=== PATIENT | female | born 1990 | race Caucasian/White ===

== ENCOUNTER 2018-12-15 02:18 | Emergency (ER) | payer MEDICAID ==
[~2018-12-15] VITALS: Ht 157.5 cm; Wt 90.7 kg
[2018-12-15 02:20] VITALS: BP_SYST 142
--- NOTE | 2018-12-15 02:27 | NUR ---
Patient to ER bed 4 to gown for evaluation. Side rails up. Report given to Linda DACOSTA.
--- NOTE | 2018-12-15 02:35 | NUR ---
Patient AOx4, ambulatory, presents to ER with complaint of MIJARES, dizziness, and throbbing neck pain 4/10 x1 week. No report of injury. Patient states she is 12 weeks . Patient states she has difficulty sleeping and is only able to sleep in 2 hour increments. No other symptoms or complaints.
--- NOTE | 2018-12-15 02:40 | NUR ---
ER MD Bates at bedside for medical evaluation.
[2018-12-15] MEDS ORDERED: ACETAMINOPHEN 500 MG TABLET PO ONE (04:45)
--- NOTE | 2018-12-15 05:30 | NUR ---
No adverse reactions noted after medication administration. Will continue to monitor.
[2018-12-15 06:00] VITALS: BP_SYST 134
--- NOTE | 2018-12-15 06:00 | NUR ---
Patient given written and verbal discharge instructions and verbalizes understanding. ER MD discussed with patient the results and treatment provided. Patient in stable condition. ID arm band removed. No Rx given. Patient educated on pain management and to follow up with PMD. Pain Scale 0/10. Opportunity for questions provided and answered.
== END 2018-12-15 06:00 | disposition home or self-care (01) ==
LOC: SED 02:18
DX: O26.891 Other specified pregnancy related conditions, first trimester (principal); G43.909 Migraine, unspecified, not intractable, without status migrainosus; M54.2 Cervicalgia; Z3A.12 12 weeks gestation of pregnancy
CPT/HCPCS: 76801; 76817; 99284

== ENCOUNTER 2018-12-16 13:35 | Emergency (ER) | payer MEDICAID ==
[~2018-12-16] VITALS: Ht 157.5 cm; Wt 90.7 kg
[2018-12-16 13:35] VITALS: BP_SYST 144
[2018-12-16] MEDS ORDERED: NACL 0.9% 1,000 ML IV ONE (13:40)
[2018-12-16 15:41] LABS: BASOPHILS # (AUTO) 0.1 K/uL (0.0-0.2); BASOPHILS % (AUTO) 0.9 % (0.0-2.0); EOSINOPHILS # (AUTO) 0.3 K/uL (0.0-0.4); EOSINOPHILS % (AUTO) 3.3 % (0.0-4.0); HEMATOCRIT 36.5 % (36-48); HEMOGLOBIN 11.8 g/dL (12.0-16.0); LYMPHOCYTES # (AUTO) 1.8 K/uL (1.0-5.5); LYMPHOCYTES % (AUTO) 23.6 % (20.5-51.5); MEAN CORPUSCULAR HEMOGLOBIN 25 pg (27-31); MEAN CORPUSCULAR HGB CONC 32 % (32-36); MEAN CORPUSCULAR VOLUME 78 fL (79.0-98.0); MONOCYTES # (AUTO) 0.6 K/uL (0.0-1.0); MONOCYTES % (AUTO) 7.4 % (1.7-9.3); NEUTROPHILS # (AUTO) 5.1 K/uL (1.8-7.7); NEUTROPHILS % (AUTO) 64.8 % (40.0-70.0); PLATELET COUNT (AUTO) 285 K/uL (130-430); RED BLOOD CELL COUNT(AUTO) 4.65 MIL/uL (4.2-6.2); RED CELL DISTRIBUTION WIDTH 17.6 % (9.0-15.0); WHITE BLOOD COUNT (AUTO) 7.8 K/uL (4.8-10.8)
[2018-12-16 16:16] LABS: CALCIUM 8.9 mg/dL (8.4-11.0); CREATININE 0.43 mg/dL (0.55-1.30); POTASSIUM 4.5 mmol/L (3.5-5.1)
[2018-12-16 16:19] LABS: ALBUMIN 3.3 g/dL (3.4-4.8); TOTAL BILIRUBIN 0.3 mg/dL (0.0-1.0)
[2018-12-16 18:08] VITALS: BP_SYST 108
== END 2018-12-16 18:08 | disposition home or self-care (01) ==
LOC: SED 13:35
DX: O46.91 Antepartum hemorrhage, unspecified, first trimester (principal); R03.0 Elevated blood-pressure reading, without diagnosis of hypertension; Z3A.01 Less than 8 weeks gestation of pregnancy
CPT/HCPCS: 36415; 80053; 84702; 85025; 86901; 99283; J7030

== ENCOUNTER 2018-12-21 18:18 | Emergency (ER) | payer MEDICAID ==
[~2018-12-21] VITALS: Ht 157.5 cm; Wt 90.7 kg
[2018-12-21 18:18] VITALS: BP_SYST 140
--- NOTE | 2018-12-21 18:18 | NUR ---
BROUGHT BACK TO BED #7 AND TRIAGED. REPORT GIVEN TO ASHA
--- NOTE | 2018-12-21 19:00 | NUR ---
Pt came to the ED for 1 day history of vaginal bleeding. Pt was seen on 12/16/2018 for similar complaints. Previous visit was 10,593 HCG. Reports that her work-up was negative adn she was advised to followup with her OBGYN. Reports pt had a migraine but reports that she took Tylenol with some help. Denies n/v/d or fever. No other complaints/injuries noted. Will cont. to monitor.
[2018-12-21 19:06] LABS: BASOPHILS # (AUTO) 0.1 K/uL (0.0-0.2); BASOPHILS % (AUTO) 0.9 % (0.0-2.0); EOSINOPHILS # (AUTO) 0.3 K/uL (0.0-0.4); EOSINOPHILS % (AUTO) 3.7 % (0.0-4.0); HEMATOCRIT 38.2 % (36-48); HEMOGLOBIN 12.5 g/dL (12.0-16.0); LYMPHOCYTES # (AUTO) 2.1 K/uL (1.0-5.5); LYMPHOCYTES % (AUTO) 25.8 % (20.5-51.5); MEAN CORPUSCULAR HEMOGLOBIN 26 pg (27-31); MEAN CORPUSCULAR HGB CONC 33 % (32-36); MEAN CORPUSCULAR VOLUME 79 fL (79.0-98.0); MONOCYTES # (AUTO) 0.8 K/uL (0.0-1.0); NEUTROPHILS # (AUTO) 4.7 K/uL (1.8-7.7); NEUTROPHILS % (AUTO) 59.6 % (40.0-70.0); PLATELET COUNT (AUTO) 293 K/uL (130-430); RED BLOOD CELL COUNT(AUTO) 4.85 MIL/uL (4.2-6.2); RED CELL DISTRIBUTION WIDTH 18.2 % (9.0-15.0)
--- NOTE | 2018-12-21 19:18 | NUR ---
Pt went to ultrasound. Tolerated well. Will cont. to monitor.
--- NOTE | 2018-12-21 19:30 | NUR ---
ER at bedside examining patient.
[2018-12-21 19:31] LABS: CALCIUM 8.4 mg/dL (8.4-11.0); CREATININE 0.52 mg/dL (0.55-1.30); POTASSIUM 4.2 mmol/L (3.5-5.1)
[2018-12-21 20:01] LABS: ALBUMIN 3.5 g/dL (3.4-4.8); TOTAL BILIRUBIN 0.3 mg/dL (0.0-1.0)
--- NOTE | 2018-12-21 20:15 | NUR ---
Pt returned from ultrasound. Tolerated well. Will cont. to monitor.
[2018-12-21 20:52] LABS: BILIRUBIN,URINE NEGATIVE (NEGATIVE); BLOOD, URINE 3+ (NEGATIVE); CLARITY/URINE HAZY (CLEAR); COLOR,URINE YELLOW (YELLOW); GLUCOSE,URINE NEGATIVE (NEGATIVE); KETONES,URINE NEGATIVE (NEGATIVE); LEUKOCYTE ESTERASE ,URINE NEGATIVE (NEGATIVE); NITRITE, URINE NEGATIVE (NEGATIVE); PH,URINE 5.5 (5.0-8.0); PROTEIN URINE NEGATIVE (NEGATIVE); UROBILINOGEN,URINE 0.2 (0.2-1.0)
[2018-12-21 20:54] VITALS: BP_SYST 140
--- NOTE | 2018-12-21 20:54 | NUR ---
Note undone in EDM - 12/22/18 at 0009 by [email or web address] d Patient given written and verbal discharge instructions and verbalizes understanding. ER MD Dr. Ferrer discussed with patient the results and treatment provided. Patient in stable condition. ID arm band removed. Patient educated on pain management and to follow up with PMD. Pain Scale 0/10. Opportunity for questions provided and answered. Medication side effect fact sheet provided.
[2018-12-21 21:17] LABS: BACTERIA,URINE None Seen /HPF (None Seen); MUCUS,URINE None Seen /LPF (None Seen); RBC,URINE 50-80 /HPF (0-3); WBC,URINE 0-3 /HPF (0-3)
== END 2018-12-21 20:54 | disposition home or self-care (01) ==
LOC: SED 18:18
DX: O20.0 Threatened abortion (principal); Z3A.01 Less than 8 weeks gestation of pregnancy
CPT/HCPCS: 36415; 76801; 76817; 80053; 81000-TC; 81025; 84702-TC; 85025; 87086; 99284

== ENCOUNTER 2020-02-16 10:22 | Emergency (ER) | payer MEDICAID ==
[~2020-02-16] VITALS: Ht 157.5 cm; Wt 88.9 kg
[2020-02-16 10:22] VITALS: BP_SYST 127
[2020-02-16 11:32] LABS: BASOPHILS # (AUTO) 0.1 K/uL (0.0-0.2); BASOPHILS % (AUTO) 0.7 % (0.0-2.0); EOSINOPHILS # (AUTO) 0.3 K/uL (0.0-0.4); EOSINOPHILS % (AUTO) 3.2 % (0.0-4.0); HEMATOCRIT 35.3 % (36-48); HEMOGLOBIN 11.6 g/dL (12.0-16.0); LYMPHOCYTES # (AUTO) 1.8 K/uL (1.0-5.5); LYMPHOCYTES % (AUTO) 20.8 % (20.5-51.5); MEAN CORPUSCULAR HEMOGLOBIN 25 pg (27-31); MEAN CORPUSCULAR HGB CONC 33 % (32-36); MEAN CORPUSCULAR VOLUME 76 fL (79.0-98.0); MONOCYTES # (AUTO) 0.8 K/uL (0.0-1.0); MONOCYTES % (AUTO) 9.7 % (1.7-9.3); NEUTROPHILS # (AUTO) 5.5 K/uL (1.8-7.7); NEUTROPHILS % (AUTO) 65.6 % (40.0-70.0); PLATELET COUNT (AUTO) 241 K/uL (130-430); RED BLOOD CELL COUNT(AUTO) 4.65 MIL/uL (4.2-6.2); RED CELL DISTRIBUTION WIDTH 29.8 % (9.0-15.0); WHITE BLOOD COUNT (AUTO) 8.4 K/uL (4.8-10.8)
[2020-02-16 11:35] LABS: CALCIUM 8.7 mg/dL (8.4-11.0); CREATININE 0.46 mg/dL (0.55-1.30); POTASSIUM 4.3 mmol/L (3.5-5.1)
[2020-02-16 12:02] LABS: ALBUMIN 3.1 g/dL (3.4-4.8); TOTAL BILIRUBIN 0.2 mg/dL (0.0-1.0)
== END 2020-02-16 12:24 | disposition home or self-care (01) ==
LOC: SED 10:22
DX: O20.0 Threatened abortion (principal); Z3A.11 11 weeks gestation of pregnancy
CPT/HCPCS: 36415; 76801; 76817; 80053; 81002; 81025; 84702-TC; 85025; 86901; 99284

== ENCOUNTER 2023-08-15 22:13 | Emergency (ER) | payer MEDICAID, OTHER ==
[~2023-08-15] VITALS: Ht 157.5 cm; Wt 86.2 kg
[2023-08-15 22:30] VITALS: BP_SYST 144; PULSE 98; RESP 20; TEMP 98.3; O2SAT 100
[2023-08-15] MEDS: KETOROLAC TROMETHAMINE 15 MG VIAL IVP ONE (23:27)
[2023-08-15] MEDS: METHOCARBAMOL 1000 MG/10 ML VIAL IVP ONE (23:27)
[2023-08-16] MEDS ORDERED: NAPR-1172 PO (00:07)
[2023-08-16] MEDS ORDERED: METH-634 PO (00:07)
[2023-08-16 00:26] VITALS: BP_SYST 144; PULSE 98; RESP 20; TEMP 98.3; O2SAT 100
== END 2023-08-16 00:26 | disposition home or self-care (01) ==
LOC: SED 22:13
DX: M75.32 Calcific tendinitis of left shoulder (principal); M25.512 Pain in left shoulder; Z79.899 Other long term (current) drug therapy
CPT/HCPCS: 99284; 96374; 96375; 73030; 81025; J1885; J2800